=== PATIENT | male | born 1955 | race Caucasian/White ===

== ENCOUNTER → 2016-12-04 | Outpatient (CLI) | payer OTHER ==
[~2016-12-04] MED LIST: ALDACTONE25 MG PO; CARDIZEM LA240 MG PO; CATAPRES 0.1MG0.1 MG PO; COZAAR50 MG PO; GLUCOTROL5 MG PO; HYDROCHLOROTHIA25 MG PO; NASACORT16.9 ML; PERCOCET 10-321 EACH PO; ROBAXIN 750 MG750 MG PO; SYNTHROID175 MCG PO; VISTARIL25 MG PO; VITAMIN D22000 UNIT PO; VITAMIN E400 UNI1 PO; XARELTO10 MG PO; ZYLOPRIM 100 M100 MG PO
== END ==
LOC: OPSV 13:54
DX: E83.42 Hypomagnesemia (principal); Z91.041 Radiographic dye allergy status; Z91.040 Latex allergy status; Z91.018 Allergy to other foods
CPT/HCPCS: 96365; 96366; J1642; J3475

== ENCOUNTER → 2016-12-19 | Outpatient (CLI) | payer OTHER | LOC: OPSV 14:00 | DX: E83.42 Hypomagnesemia (principal) | CPT/HCPCS: 96365; 96366; J1642 ==